=== PATIENT | female | born 1995 | race African-American/Black ===

== ENCOUNTER 2017-04-17 15:11 | Emergency (ER) | payer SELFPAY ==
--- NOTE | 2017-04-17 15:51 | PDOC ---
Rapid Medical Evaluation Chief Complaint: Asthma Medical Evaluation: 04/17/17 15:48 I have performed a brief in-person evaluation of this patient. The patient presents with a chief complaint of:asthma Pertinent physical exam findings:mild exp wheezing speaking full sentences comfortably I have ordered the following:jeannie The patient will proceed to the ED for further evaluation.
[2017-04-17 15:52] VITALS: BP 138/76; PULSE 80; TEMP 98.2; BMI 24.1
[2017-04-17] MEDS ORDERED: TRIAMCINOLONE ACET 40MG/1ML VIAL IM ONE (16:46)
[2017-04-17] MEDS ORDERED: ALBUTEROL SO4 2.5/IPRATROPIUM 0.5 INH SOL 3 ML VIAL.NEB. NEB ONE ×4 (16:46→17:39)
[2017-04-17] MEDS ORDERED: ALBUTEROL SO4 6.7 GM HFA INHALER IH ONE (16:47)
--- NOTE | 2017-04-17 16:50 | PDOC ---
History of Present Illness - General Chief Complaint: Asthma Stated Complaint: LIGHTHEADED Time Seen by Provider: 04/17/17 16:29 History Source: Patient Exam Limitations: No Limitations - History of Present Illness Initial Comments: 04/17/17 16:47 Patient came to emergency department with complaints of acute exacerbation of asthma. States pollen ALLERGIES worsen, and has run out of inhalers due to insurance changes. States woke up this morning at 2:00 with asthma attack, used her [id number] medications with minimal resolved. Denies fever, denies any phlegm production, is taking irregularly. Timing/Duration: reports: changing over time, getting worse Severity: reports: mild, moderate Possible Cause: Yes: allergen exposure, occasional episodes Associated Symptoms: reports: nasal congestion, shortness of breath Past History - Travel Traveled outside of the country in the last 30 days: No Close contact w/someone who was outside of country & ill: No - Past Medical History Allergies/Adverse Reactions: Allergies Allergy/AdvReac Type Severity Reaction Status Date / Time No Known Allergies Allergy Verified 04/17/17 15:49 Home Medications: Ambulatory Orders Albuterol Sulfate [Proventil HFA Inhaler -] 1 - 2 inh PO QID #1 inhaler - Psycho/Social/Smoking Cessation Hx Suicidal Ideation: No Smoking History: Current every day smoker Number of Cigarettes Smoked Daily: 2 Information on smoking cessation initiated: No Hx Alcohol Use: No Drug/Substance Use Hx: No Review of Systems - Review of Systems Able to Perform ROS?: Yes Is the patient limited Armenian proficient: Yes Constitutional: Yes: Symptoms Reported, See HPI, Malaise. No: Chills, Fever HEENTM: Yes: Symptoms Reported, See HPI, Nose Congestion. No: Throat Pain, Mouth Pain Respiratory: Yes: Symptoms reported, See HPI, Shortness of Breath, Wheezing Cardiac (ROS): No: Symptoms Reported Integumentary: No: Symptoms Reported Neurological: No: Symptoms reported All Other Systems: Reviewed and Negative *Physical Exam - Vital Signs Last Vital Signs Temp Pulse Resp BP Pulse Ox 98.2 F 80 18 138/76 99 04/17/17 15:49 04/17/17 15:49 04/17/17 15:49 04/17/17 15:49 04/17/17 15:49 - Physical Exam General Appearance: Yes: Nourished, Appropriately Dressed, Apparent Distress HEENT: positive: BREEZY, Normal ENT Inspection, TMs Normal, Pharynx Normal Neck: positive: Supple. negative: Lymphadenopathy (R), Lymphadenopathy (L) Respiratory/Chest: positive: Decreased Breath Sounds, Wheezing (tight /faint bilateral, with poor breath sounds auscultated. Speaks in forward sentences with mild air hunger). negative: Lungs Clear, Normal Breath Sounds Cardiovascular: positive: Regular Rate Gastrointestinal/Abdominal: positive: Soft. negative: Tender Extremity: positive: Normal Capillary Refill, Normal Inspection Integumentary: positive: Normal Color, Dry, Warm Progress Note - Progress Note Progress Note: Asthma exacerbation, some improvement after 2 DuoNeb and prednisone Medical Decision Making - Medical Decision Making 04/17/17 17:33 04/17/17 18:02 Much improved after fourth DuoNeb, and Kenalog 40 mg IM. States feels clear, breathing is better, feels jittery status post nebulizer treatments but is ready for discharge *DC/Admit/Observation/Transfer Diagnosis at time of Disposition: Asthma Qualifiers: Asthma severity: mild intermittent Asthma complication type: with acute exacerbation Qualified Code(s): J45.21 - Mild intermittent asthma with (acute) exacerbation - Discharge Dispostion Disposition: HOME Condition at time of disposition: Stable Admit: No - Prescriptions Prescriptions: Albuterol Sulfate [Proventil HFA Inhaler -] 1 - 2 inh PO QID #1 inhaler - Patient Instructions Printed Discharge Instructions: Asthma -- Adult Additional Instructions: Rest, drink lots of fluids: Teas, water, soups, Pedialyte Saltwater gargles Steamy showers/seem to face break up mucus Avoid contact with others until fevers and cough resolved Lots of handwashing and good hygiene Continue [id number] medications for symptomatic relief Tylenol or Motrin for fever and pain Continue 2 puffs of albuterol 4 times a day for the next 3 days then as needed Followup with private physician in one to 2 day to have reevaluation and prescriptions written for further asthma treatment Return to emergency department for worsened symptoms, fevers, dehydration
[2017-04-17] MEDS ORDERED: TRIAMCINOLONE ACET 40MG/1ML VIAL ONE (17:34)
== END 2017-04-17 18:04 | disposition home or self-care (01) ==
LOC: JERFT 15:11
PROC: 3E0F7GC Introduction of Other Therapeutic Substance into Respiratory Tract, Via Natural or Artificial Opening (ICD-10-PCS; principal; 2017-04-17)
PROC: 3E0F7GC Introduction of Other Therapeutic Substance into Respiratory Tract, Via Natural or Artificial Opening (ICD-10-PCS; 2017-04-17)
PROC: 3E0F7GC Introduction of Other Therapeutic Substance into Respiratory Tract, Via Natural or Artificial Opening (ICD-10-PCS; 2017-04-17)
PROC: 3E0233Z Introduction of Anti-inflammatory into Muscle, Percutaneous Approach (ICD-10-PCS; 2017-04-17)
DX: J45.21 Mild intermittent asthma with (acute) exacerbation (principal)
CPT/HCPCS: 84703; 99281-25

== ENCOUNTER 2023-07-29 19:22 | Emergency (ER) | payer OTHER ==
[2023-07-29 19:36] VITALS: BP 135/83; PULSE 104; RESP 18; TEMP 98.2; BMI 22.6
[2023-07-29] MEDS ORDERED: AMOX TR/POT CLAV 875MG/125MG TABLETS (FP) PO ONE (20:16)
[2023-07-29] MEDS ORDERED: IBUPROFEN 600 MG TABLET (FP) PO ONE ×2 (20:17→20:27)
[2023-07-29] MEDS ORDERED: AMOX TR/POT CLAV 875MG/125MG TABLETS (FP) ONE (20:28)
== END 2023-07-29 20:42 | disposition home or self-care (01) ==
LOC: JERFT 19:22
DX: K08.89 Other specified disorders of teeth and supporting structures (principal); K06.8 Other specified disorders of gingiva and edentulous alveolar ridge
CPT/HCPCS: 99283-25

== ENCOUNTER 2023-08-22 15:25 | Emergency (ER) | payer OTHER ==
[2023-08-22 15:34] VITALS: BP 112/72; PULSE 97; RESP 20; TEMP 98.3; BMI 21.6
[2023-08-22] MEDS ORDERED: ALBUTEROL SO4 2.5/IPRATROPIUM 0.5 INH SOL 3 ML VIAL.NEB. NEB ONE ×2 (16:05→16:21)
[2023-08-22] MEDS ORDERED: DEXAMETHASONE SOD PHOSPHATE 10 MG/1 ML VIAL IM ONE (16:06)
[2023-08-22] MEDS ORDERED: DEXAMETHASONE SOD PHOSPHATE 10 MG/1 ML VIAL ONE (16:21)
== END 2023-08-22 17:05 | disposition home or self-care (01) ==
LOC: JER 15:25
DX: R07.89 Other chest pain (principal); J45.901 Unspecified asthma with (acute) exacerbation
CPT/HCPCS: 71046-TC-FY; 99283-25

== ENCOUNTER 2023-08-24 02:53 | Emergency (ER) | payer OTHER ==
[2023-08-24 03:01] VITALS: BP 124/68; PULSE 82; RESP 20; TEMP 98.8; BMI 21.6
[2023-08-24] MEDS ORDERED: DEXAMETHASONE LIQUID 0.5 MG/5 ML PO ONE (03:27)
[2023-08-24] MEDS ORDERED: DEXAMETHASONE SOD PHOSPHATE 10 MG/1 ML VIAL ONE (03:49)
[2023-08-24] MEDS ORDERED: ALBUTEROL SO4 2.5/IPRATROPIUM 0.5 INH SOL 3 ML VIAL.NEB. NEB ONE ×2 (03:49→04:23)
[2023-08-24] MEDS: ALBUTEROL SO4 2.5/IPRATROPIUM 0.5 INH SOL 3 ML VIAL.NEB. NEB SCH ×2 (03:55→04:25)
[2023-08-24] MEDS ORDERED: ALBUTEROL SO4 HFA INHALER IH PRN (05:36)
[2023-08-24] MEDS ORDERED: ALBUTEROL SO4 HFA INHALER IH ONE ×2 (05:39→05:44)
== END 2023-08-24 05:48 | disposition home or self-care (01) ==
LOC: JER 02:53
PROC: 3E0F7GC Introduction of Other Therapeutic Substance into Respiratory Tract, Via Natural or Artificial Opening (ICD-10-PCS; principal; 2023-08-24)
PROC: 3E0F7GC Introduction of Other Therapeutic Substance into Respiratory Tract, Via Natural or Artificial Opening (ICD-10-PCS; 2023-08-24)
DX: R06.00 Dyspnea, unspecified (principal); R05.9 Cough, unspecified; J45.21 Mild intermittent asthma with (acute) exacerbation
CPT/HCPCS: 99284-25

== ENCOUNTER 2023-09-02 12:00 | Emergency (ER) | payer OTHER ==
[2023-09-02 12:21] VITALS: BP 129/89; PULSE 110; RESP 16; TEMP 98.5; BMI 21.6
[2023-09-02] MEDS ORDERED: ALBUTEROL SO4 2.5/IPRATROPIUM 0.5 INH SOL 3 ML VIAL.NEB. NEB ONE ×3 (12:37→12:47)
[2023-09-02] MEDS ORDERED: DEXTROMETHORPHAN/PROMETHAZINE 15 MG/6.25 MG/5 ML SYRUP PO ONE (13:40)
== END 2023-09-02 14:45 | disposition home or self-care (01) ==
LOC: JER 12:00
PROC: 3E0F7GC Introduction of Other Therapeutic Substance into Respiratory Tract, Via Natural or Artificial Opening (ICD-10-PCS; principal; 2023-09-02)
DX: J45.41 Moderate persistent asthma with (acute) exacerbation (principal); R07.89 Other chest pain; R05.9 Cough, unspecified
CPT/HCPCS: 93005; 93010; 99283-25

== ENCOUNTER 2023-10-06 10:19 | Emergency (ER) | payer OTHER ==
[2023-10-06 10:29] VITALS: BP 128/80; PULSE 77; RESP 18; TEMP 98.2; BMI 21.6
== END 2023-10-06 11:20 | disposition home or self-care (01) ==
LOC: JERFT 10:19
DX: K08.89 Other specified disorders of teeth and supporting structures (principal); R22.0 Localized swelling, mass and lump, head; K04.7 Periapical abscess without sinus
CPT/HCPCS: 99283-25

== ENCOUNTER 2024-05-24 20:10 | Emergency (ER) | payer OTHER ==
[2024-05-24 20:16] VITALS: BP 124/72; PULSE 81; RESP 18; TEMP 98.6; BMI 21.4
[2024-05-24] MEDS ORDERED: ONDANSETRON 4 MG/2 ML VIAL ONE (21:24)
[2024-05-24] MEDS ORDERED: ACETAMINOPHEN INJECTION 100 ML IVPB ONE (21:24)
[2024-05-24 21:35] LABS: BASO % 0.6 % (0-2.0); EOS % 6.1 % (0-4.5); HEMATOCRIT 30.1 % (32.4-45.2); HEMOGLOBIN 9.7 GM/dL (10.7-15.3); LYMPH % 50.6 % (8-40); MCH 20.3 pg (25.7-33.7); MCHC 32.2 g/dl (32.0-36.0); MEAN CELL VOLUME 63.1 fl (80-96); MEAN PLT VOLUME 8.9 fl (7.5-11.1); MONO % 7.5 % (3.8-10.2); NEUT % 35.2 % (42.8-82.8); PLATELET COUNT 259 10^3/uL (134-434); RBC 4.77 M/mm3 (3.60-5.2); RDW 21.3 % (11.6-15.6); WHITE BLOOD COUNT 4.5 K/mm3 (4.0-10.0)
[2024-05-24] MEDS: SODIUM CHLORIDE 0.9% 500 ML INFUS.BAG IV ONE (21:59)
[2024-05-24] MEDS: ONDANSETRON 4 MG/2 ML VIAL IVPUSH ONE (21:59)
[2024-05-24] MEDS: ACETAMINOPHEN 1000 MG/100 ML BAG IVPB ONE (22:00)
[2024-05-24 22:04] LABS: POTASSIUM 4.5 mmol/L (3.5-5.1)
[2024-05-24 22:07] LABS: ALBUMIN 3.9 g/dl (3.4-5.0); ANISOCYTOSIS 2+; BLOOD UREA NITROGEN 11.8 mg/dL (7-18); CALCIUM 9.4 mg/dL (8.5-10.1); MACROCYTOSIS 0; OVALOCYTE 1+; TARGET CELLS 1+; TEAR DROP CELLS 1+
[2024-05-24 22:10] LABS: PHOSPHOROUS 3.7 mg/dL (2.5-4.9)
[2024-05-24 22:11] LABS: BILIRUBIN,TOTAL 0.2 mg/dL (0.2-1)
[2024-05-24] MEDS ORDERED: MAG HYDROX/AL HYDROX/SIMETH 30 ML UNIT-DOSE CUP ONE (22:13)
[2024-05-24] MEDS ORDERED: FAMOTIDINE 20 MG/50 ML IVPB 20 MG/50 ML MG IVPB ONE (22:14)
[2024-05-24] MEDS: MAG HYDROX/AL HYDROX/SIMETH 30 ML UNIT-DOSE CUP PO ONE (22:19)
[2024-05-24] MEDS: FAMOTIDINE 20 MG/50 ML IVPB 20 MG/50 ML MG IVPB ONE (22:19)
== END 2024-05-24 22:51 | disposition home or self-care (01) ==
LOC: JER 20:10
PROC: 3E033GC Introduction of Other Therapeutic Substance into Peripheral Vein, Percutaneous Approach (ICD-10-PCS; principal; 2024-05-24)
PROC: 3E033GC Introduction of Other Therapeutic Substance into Peripheral Vein, Percutaneous Approach (ICD-10-PCS; 2024-05-24)
PROC: 3E033NZ Introduction of Analgesics, Hypnotics, Sedatives into Peripheral Vein, Percutaneous Approach (ICD-10-PCS; 2024-05-24)
DX: R10.84 Generalized abdominal pain (principal); R19.7 Diarrhea, unspecified
CPT/HCPCS: 36415; 80053; 83690; 83735; 84100; 84703; 85025; 99284-25; J0131

== ENCOUNTER 2024-12-31 09:08 | Emergency (ER) | payer SELFPAY ==
[2024-12-31 09:13] VITALS: BP 118/84; PULSE 67; RESP 18; TEMP 98.6; BMI 21.6
== END 2024-12-31 11:01 | disposition home or self-care (01) ==
LOC: JER 09:08
PROC: 2W3CX1Z Immobilization of Right Lower Arm using Splint (ICD-10-PCS; principal; 2024-12-31)
DX: M79.644 Pain in right finger(s) (principal); X50.1XXA Overexertion from prolonged static or awkward postures, initial encounter; Y99.0 Civilian activity done for income or pay
CPT/HCPCS: 73130-TC-RT-FY; 99283-25

== ENCOUNTER 2025-06-19 21:15 | Emergency (ER) | payer SELFPAY ==
[2025-06-19 21:27] VITALS: BP 122/69; PULSE 86; RESP 18; TEMP 99.2; BMI 20.9
[2025-06-19] MEDS ORDERED: ALBUTEROL SO4 2.5/IPRATROPIUM 0.5 INH SOL 3 ML VIAL.NEB. NEB ONE (21:46)
[2025-06-19] MEDS: ALBUTEROL SO4 2.5/IPRATROPIUM 0.5 INH SOL 3 ML VIAL.NEB. NEB SCH (21:51)
[2025-06-19] MEDS ORDERED: ALBUTEROL SO4 HFA INHALER IH ONE (22:49)
[2025-06-19] MEDS: ALBUTEROL SO4 HFA INHALER IH ONE (22:52)
== END 2025-06-19 22:52 | disposition home or self-care (01) ==
LOC: JER 21:15
PROC: 3E0F7GC Introduction of Other Therapeutic Substance into Respiratory Tract, Via Natural or Artificial Opening (ICD-10-PCS; principal; 2025-06-19)
DX: J45.901 Unspecified asthma with (acute) exacerbation (principal); J02.9 Acute pharyngitis, unspecified; R05.9 Cough, unspecified; J06.9 Acute upper respiratory infection, unspecified
CPT/HCPCS: 84703; 87637-QW; 87651; 99283-25